=== PATIENT | female | born 1980 | race Two or more races ===

== ENCOUNTER 2016-08-20 10:34 | Emergency (ER) | payer BC ==
[~2016-08-20] VITALS: Ht 160 cm; Wt 76.2 kg
[2016-08-20 10:40] VITALS: BP 128/83
[2016-08-20] MEDS ORDERED: HYDROcodone-ACET 5/325MG TAB PO ONE (11:15)
[2016-08-20] MEDS ORDERED: diphenhdrAMINE HCL 50 MG/1 ML VL IM ONE (11:15)
[2016-08-20] MEDS ORDERED: TETANUS-DIPTH-ACEL PERTUSSIS 0.5ML SYRG IM ONE (12:30)
== END 2016-08-20 12:51 | disposition home or self-care (01) ==
LOC: EDBD 10:34 → ER 10:36
DX: M79.622 Pain in left upper arm (principal); T63.301A Toxic effect of unspecified spider venom, accidental (unintentional), initial encounter; Z23 Encounter for immunization; Y99.8 Other external cause status; Y93.89 Activity, other specified; Y92.89 Other specified places as the place of occurrence of the external cause
CPT/HCPCS: 90471; 90715; 96372; 99284; J1200

== ENCOUNTER 2024-04-19 20:00 | Emergency (ER) | payer BC ==
[~2024-04-19] VITALS: Ht 160 cm; Wt 81.2 kg
[2024-04-19 20:09] VITALS: PULSE 96; RESP 16; TEMP 98.5; O2SAT 98
--- NOTE | 2024-04-19 20:11 | ED.PDOC ---
HPI Allergic reaction HPI Comments THIS IS A 43-YEAR-OLD FEMALE PRESENTS TO THE ED CHIEF COMPLAINT RASH. PATIENT STATES SYMPTOMS STARTED EARLIER TODAY SHE NOTES WHEN OUT TO EAT AND AROUND 30 MINUTES LATER STARTED DEVELOPING A RASH IN THE FEELING OF THROAT SWELLING. PATIENT REPORTS TOOK BENADRYL IN HER VIOLETTA AND NOTICED SOME IMPROVEMENT IN THE RASH. CONTINUES WITH THE FEELING OF HER THROAT BEING SWOLLEN, ITCHINESS TO ABDOMEN AND BACK, AND RASH. DENIES CHEST PAIN, DIFFICULTY BREATHING, SHORTNESS OF BREATH, OR KNOWN ALLERGEN. PATIENT IS HYPERTENSIVE ON EXAM REPORTS HISTORY OF HIGH BLOOD PRESSURE TREATED WITH UNKNOWN BLOOD PRESSURE MEDICATION PATIENT STATES SHE TOOK IT IN THE MORNING TAKES IT ONCE DAILY. 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 Family History Family History: Unknown Social History Smoker: Non-Smoker Alcohol: Denies ETOH Use Drugs: Denies Drug Use Lives In: Home Constitutional: denies: chills, diaphoresis, fatigue, fever, malaise, sweats, weakness, others EENTM: reports: throat swelling; denies: blurred vision, double vision, ear bleeding, ear discharge, ear drainage, ear pain, ear ringing, eye pain, eye redness, hearing loss, mouth pain, mouth swelling, nasal discharge, nose bleed ing, nose congestion, nose pain, photophobia, tearing, throat pain, voice changes, others Respiratory: denies: cough, hemoptysis, orthopnea, SOB at rest, shortness of breath, SOB with excertion, stridor, wheezing, others Cardiovascular: denies: chest pain, dizzy spells, diaphoresis, Dyspnea on exertion, edema, irregular heart beat, left arm pain, lightheadedness, palpitations, PND, syncope, others Gastrointestinal: denies: abdomen distended, abdominal pain, blood streaked bowels, constipated, diarrhea, dysphagia, difficulty swallowing, hematemesis, melena, nausea, poor appetite, poor fluid intake, rectal bleeding, rectal pain, vomiting, others Genitourinary: denies: abnormal vagina bleeding, burning, dyspareunia, dysuria, flank pain, frequency, hematuria, incontinence, pain, , vagina disch arge, urgency, others Neurological: denies: dizziness, fainting, headache, left sided numbness, left sided weakness, numbness, paresthesia, pre-existing deficit, right sided numbness, right sided weakness, seizure, speech problems, tingling, tremors, weakness, others Musculoskeletal: denies: back pain, gout, joint pain, joint swelling, muscle pain, muscle stiffness, neck pain, others Integumetry: reports: rash (On abdomen and back); denies: bruises, change in color, change in hair/nails, dryness, laceration, lesions, lumps, wounds, others Allergic/Immunocompromised: denies: Difficulty Healing, Frequent Infections, Hives, Itching, others Hematologic/Lymphatic: denies: anemia, blood clots, easy bleeding, easy bruising, swollen glands, others Endocrine: denies: excessive hunger, excessive sweating, excessive thirst, excessive urination, flushing, intolerance to cold, intolerance to heat, unexplained weight gain, unexplained weight loss, others Psychiatric: denies: anxiety, bipolar disorder, depression, hopeless, panic disorder, schizophrenia, sleepless, suicidal, others Physical Exam General Appearance: No Apparent Distress, Normal HEENT: Normal ENT Inspection, Pharynx Normal, TMs Normal Neck: Full Range of Motion, Non-Tender Respiratory: Lungs Clear, No Accessory Muscle Use, No Respiratory Distress, Normal Breath Sounds Cardiovascular: No Edema, No JVD, No Murmur, No Gallop, Normal Peripheral Pulses, Regular Rate/Rhythm Breast Exam: Deferred Gastrointestinal: No Organomegaly, Non Tender, No Pulsatile Mass, Normal Bowel Sounds, Soft Genitalia: Deferred Pelvic: Deferred Rectal: Deferred Extremities: Normal capillary refill, Normal inspection, Normal range of motion, Non-tender, No pedal edema Musculoskeletal : Apperance: Normal Neurologic: Alert, registered nurse II-XII nml as Tested, No Motor Deficits, Normal Affect, Normal Mood, No Sensory Deficits Cerebellar Function: Normal Reflexes: Normal Skin: Dry, Normal Color, Rash (Urticarial rash noted across abdomen and back no noted excoriations, drainage.), Warm Lymphatic: No Adenopathy Was a procedure done? Was a procedure done?: No Differential diagnosis (all) Differential Diagnosis: Anaphylaxis, Angioedema, Bronchospasm, Urticaria X-Ray, Labs, Meds, VS Vital Signs Date Time Temp Pulse Resp B/P (MAP) Pulse Ox O2 Delivery O2 Flow Rate FiO2 04/19/24 20:09 98.5 96 16 172/103 (126) 98 04/19/24 20:09 98.5 96 16 172/103 (126) 98 98.5 04/19/24 20:09 Room Air Current Medications Medications (Trade) Dose Ordered Sig/Brodie Route Start Time Stop Time Status Last Admin Dexamethasone Sodium Phosphate (Decadron Injection) 10 mg ONCE ONCE IM 04/19/24 20:30 04/19/24 20:31 DC 04/19/24 20:33 Ketorolac Tromethamine (Toradol Injection) 60 mg ONCE ONCE IM 04/19/24 20:30 04/19/24 20:31 DC 04/19/24 20:33 Diphenhydramine HCl (Benadryl Injection) 25 mg ONCE ONCE IM 04/19/24 20:30 04/19/24 20:31 DC 04/19/24 20:34 Famotidine (Pepcid Tablet) 40 mg ONCE ONCE PO 04/19/24 20:30 04/19/24 20:31 DC 04/19/24 20:32 X-Ray, Labs, Meds, VS Comment PATIENT GIVEN BENADRYL 25 MG IM, DECADRON 10 MG IM, TORADOL 60 MG IM AND PEPCID 40 MG P.O. PATIENT REPORTS IMPROVEMENT IN THROAT SWELLING, ITCHINESS AND RASH. REQUESTING DISCHARGE AT THIS TIME. SCRIPT MEDROL DOSEPAK AND PEPCID 20 MG TWICE DAILY FOR 6 DAYS ADVISED TO CONTINUE WITH HER VIOLETTA KEEP BENADRYL ON HAND AT HOME INCREASE FLUIDS, FOLLOW UP WITH PCP IN 2-3 DAYS NECESSARY ER RETURN PRECAUTIONS GIVEN PATIENT AGREES WITH DISCHARGE PLAN OF CARE. Time of 1ST Reevaluation: 21:01 Reevaluation 1ST: Improved Patient Education/Counseling: Diagnosis, Treatment, Prognosis, Need For Follow Up Family Education/Counseling: No Family Present Departure 1 Departure Time of Disposition: 21:01 Impression: Primary Impression: Allergic reaction Qualified Codes: T78.40XA - Allergy, unspecified, initial encounter Additional Impression: Hypertension Qualified Codes: I10 - Essential (primary) hypertension Disposition: HOME / SELF CARE / HOMELESS Condition: Stable e-Prescriptions Famotidine (PEPCID TABLET) 20 Mg Tb 1 TAB PO BID for 6 Days, #12 TAB Prov: KAIT SPARKS 04/19/24 Methylprednisolone (Medrol Dosepak) 4 Mg Deepak 4 MG PO UD for 6 Days, #21 TAB UAD Prov: KAIT SPARKS 04/19/24 Discharged With: Significant Other Critical Care Note Critical Care Time?: No Stability Stability form required: No KAIT SPARKS Apr 19, 2024 20:10
[2024-04-19] MEDS: FAMOTIDINE 20 MG TAB PO ONE (20:32)
[2024-04-19] MEDS: KETOROLAC TROMETH 60MG/2ML VIAL IM ONE (20:33)
[2024-04-19] MEDS: DexAMETHasone SOD PHOS 10MG/1ML VIAL INJ IM ONE (20:33)
[2024-04-19] MEDS: diphenhdrAMINE HCL 50 MG/1 ML VL IM ONE (20:34)
[2024-04-19] MEDS ORDERED: FAMO20TA10 PO (21:04)
[2024-04-19] MEDS ORDERED: METH4PAK PO (21:04)
[2024-04-19 21:11] VITALS: BP 151/88
[2024-04-20] MEDS ORDERED: EPIN0.3I24 IJ (22:54)
[2024-04-20] MEDS ORDERED: DIPH25CA66 PO (23:10)
== END 2024-04-19 21:28 | disposition home or self-care (01) ==
LOC: ER 20:00
DX: T78.49XA Other allergy, initial encounter (principal); I10 Essential (primary) hypertension; Z90.710 Acquired absence of both cervix and uterus; X58.XXXA Exposure to other specified factors, initial encounter
CPT/HCPCS: 96372; 99284; J1100; J1200; J1885

== ENCOUNTER 2024-04-20 19:21 | Inpatient (IN) | payer BC ==
[~2024-04-20] VITALS: Ht 160 cm; Wt 83.0 kg
[~2024-04-20 19:21] MED LIST: FAMO20TA10 PO; METH4PAK PO
[2024-04-20] MEDS ORDERED: EPIN0.3I24 IJ (22:54)
--- NOTE | 2024-04-20 22:54 | ED.PDOC ---
HPI Allergic reaction HPI Comments 43-YEAR-OLD FEMALE PRESENTS TO ER WITH COMPLAINTS OF ALLERGIC REACTION X1 HOUR. PATIENT NO KNOWN ALLERGIES REPORTS THAT SHE STARTED EXPERIENCING ITCHY RED HIVES TO LEFT SIDE OF FACE, NECK, UPPER CHEST AND BILATERAL ARMS WITH ASSOCIATED ITCHY THROAT/DIFFICULTY SWALLOWING 1 HOUR PRIOR TO ARRIVAL TO ER THAT STARTED I MMEDIATELY AFTER SHE HAD EATEN A CHICKEN AND RICE BOWL. NOTES THAT SHE WAS SEEN IN ER HERE FOR SIMILAR REACTION YESTERDAY AND PRESCRIBED A MEDROL DOSEPAK AND PEPCID BUT STATES SHE ONLY TOOK BENADRYL AT ONSET OF SYMPTOMS TODAY WITHOUT ANY RELIEF. PATIENT PRESENTS TO ER AMBULATORY ON ARRIVAL WITH STEADY GAIT, IN NO DISTRESS, SPEAKING IN CLEAR AND COMPLETE SENTENCES, ALERT AND ORIENTED X4 WITH MILD URTICARIA NOTED TO LEFT SIDE OF FACE, NECK, UPPER CHEST WALL AND BILATERAL ARMS. DENIES SHORTNESS OF BREATH, CHEST PAIN, NAUSEA/VOMITING, DIET CHANGES, USE OF NEW SOAPS/DETERGENTS/LOTIONS, FEVER, ABDOMINAL PAIN OR ANY FURTHER S YMPTOMS/COMPLAINTS Chief Complaint: Rash Time Seen by MD: 19:27 Primary Care Provider: DR CURRY Reviewed Notes: Nurses Notes, Medications, Allergies Allergies: Coded Allergies: NO KNOWN ALLERGIES (Unverified , 02/01/16) Home Meds Active Scripts Famotidine (PEPCID TABLET) 20 Mg Tb, 1 TAB PO BID for 6 Days, #12 TAB Prov:KAIT SPARKS CARE NAVIGATOR 04/19/24 Methylprednisolone (Medrol Dosepak) 4 Mg Deepak, 4 MG PO UD for 6 Days, #21 TAB UAD Prov:KAIT SPARKS CARE NAVIGATOR 04/19/24 Discontinued Scripts Diphenhydramine Hcl (Benadryl Allergy) 25 Mg Cap, 2 CAP PO Q4HPRN, #30 CAP 0 Refills Prov:WENDY JANE 04/20/24 Epinephrine (Epinephrine) 0.3 Mg/0.3 Ml Inj, 0.3 MG IJ ONCE, #1 INJ 0 Refills Prov:WENDY JANE 04/20/24 Information Source: Patient Mode of Arrival: Ambulatory Past Medical History PAST MEDICAL HISTORY: HTN Surgical History: Appendectomy, Hysterectomy 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 Family History Family History: Unknown Social History Smoker: Non-Smoker Alcohol: Denies ETOH Use Drugs: Denies Drug Use Lives In: Home Constitutional: denies: chills, diaphoresis, fatigue, fever, malaise, sweats, weakness, others EENTM: denies: blurred vision, double vision, ear bleeding, ear discharge, ear drainage, ear pain, ear ringing, eye pain, eye redness, hearing loss, mouth pain, mouth swelling, nasal discharge, nose bleeding, nose congestion, nose pain, photophobia, tearing, throat pain, throat swelling, voice changes, others Respiratory: denies: cough, hemoptysis, orthopnea, SOB at rest, shortness of breath, SOB with excertion, stridor, wheezing, others Cardiovascular: denies: chest pain, dizzy spells, diaphoresis, Dyspnea on exertion, edema, irregular heart beat, left arm pain, lightheadedness, palpitations, PND, syncope, others Gastrointestinal: denies: abdomen distended, abdominal pain, blood streaked bowels, constipated, diarrhea, dysphagia, difficulty swallowing, hematemesis, melena, nausea, poor appetite, poor fluid intake, rectal bleeding, rectal pain, vomiting, others Genitourinary: denies: abnormal vagina bleeding, burning, dyspareunia, dysuria, flank pain, frequency, hematuria, incontinence, pain, , vagina discharge, urgency, others Neurological: denies: dizziness, fainting, headache, left sided numbness, left sided weakness, numbness, paresthesia, pre-existing deficit, right sided numbness, right sided weakness, seizure, speech problems, tingling, tremors, weakness, others Musculoskeletal: denies: back pain, gout, joint pain, joint swelling, muscle pain, muscle stiffness, neck pain, others Integumetry: reports: others ( STATED IN HPI) Allergic/Immunocompromised: reports: others ( STATED IN HPI) Hematologic/Lymphatic: denies: anemia, blood clots, easy bleeding, easy bruising, swollen glands, others Endocrine: denies: excessive hunger, excessive sweating, excessive thirst, excessive urination, flushing, intolerance to cold, intolerance to heat, unexplained weight gain, unexplained weight loss, others Psychiatric: denies: anxiety, bipolar disorder, depression, hopeless, panic disorder, schizophrenia, sleepless, suicidal, others Physical Exam General Appearance: No Apparent Distress, Obese HEENT: Normal ENT Inspection, PERRL/EOMI, Pharynx Normal, TMs Normal Neck: Full Range of Motion, Non-Tender, Normal Respiratory: Chest Non-Tender, Lungs Clear, No Accessory Muscle Use, No Respiratory Distress, Normal Breath Sounds Cardiovascular: No Murmur, No Gallop, Regular Rate/Rhythm Breast Exam: Deferred Gastrointestinal: No Organomegaly, Non Tender, No Pulsatile Mass, Normal Bowel Sounds, Soft Genitalia: Deferred Pelvic: Deferred Rectal: Deferred Extremities: Normal capillary refill, Normal range of motion Neurologic: Alert, cigar head pegger II-XII nml as Tested, No Motor Deficits, Normal Affect, Normal Mood, No Sensory Deficits Cerebellar Function: Normal Reflexes: Normal Skin: Dry, Warm, Other (MILD URTICARIA NOTED TO LEFT SIDE OF FACE, NECK, UPPER CHEST WALL AND BILATERAL ARMS. NO ANGIOEDEMA/FURTHER SKIN CHANGES NOTED) Peripheral Pulses: 2+ carotid (R), 2+ carotid (L), 2+ Radial (R), 2+ Radial (L), 2+ Brachial (R), 2+ Brachial (L) Lymphatic: No Adenopathy Was a procedure done? Was a procedure done?: No Sedation Sedation?: No Differential diagnosis (all) Differential Diagnosis: Anaphylaxis, Angioedema, Hypotension X-Ray, Labs, Meds, VS Vital Signs Date Time Temp Pulse Resp B/P (MAP) Pulse Ox O2 Delivery O2 Flow Rate FiO2 04/21/24 05:35 97 97 97 Room Air* 0 21 04/21/24 05:33 106 22 128/63 (84) 04/21/24 05:10 84 16 114/63 (80) 04/21/24 04:01 98.9 87 16 97/48 (64) 98 98.9 04/21/24 01:59 99.0 74 16 114/60 (78) 99 99.0 04/20/24 23:13 70 13 97 Room Air 04/20/24 23:13 98.6 70 13 133/79 (97) 97 98.6 04/20/24 19:36 98.3 89 18 141/97 (112) 95 Lab Test 04/21/24 03:30 04/21/24 02:14 Range/Units Urine Color Colorless Yellow Urine Clarity Clear Clear Urine pH 6.0 5.0-9.0 Urine Specific [place] 1.004 1.001-1.035 Urine Protein Negative Negative Urine Ketones Negative Negative Urine Blood Negative Negative /uL Urine Nitrite Negative Negative Urine Bilirubin Negative Negative Urine Urobilinogen Normal Negative mg/dL Urine Leukocyte Esterase Negative Negative /uL Urine RBC None seen 0 - 4 /hpf Urine Microscopic WBC < 1 0-5 /HPF Urine Squamous Epithelial Cells Few <5 /hpf Urine Bacteria Few H None Seen /hpf Urine Glucose 2+ H Normal mg/dL White Blood Count 16.0 H 4.4-10.8 10^3/uL Red Blood Count 4.37 4.0-5.20 10^6/uL Hemoglobin 13.4 12.2-16.2 g/dL Hematocrit 40.1 36.0-46.0 % Mean Corpuscular Volume 91.7 80.0-100.0 fL Mean Corpuscular Hemoglobin 30.6 28.0-32.0 pg Mean Corpuscular Hemoglobin Concent 33.3 32.0-36.0 g/dL Red Cell Distribution Width 12.8 11.8-14.3 % Platelet Count 299 140-450 10^3/uL Mean Platelet Volume 9.3 6.9-10.8 fL Neutrophils (%) (Auto) 90.3 H 37.0-80.0 % Lymphocytes (%) (Auto) 7.9 L 10.0-50.0 % Monocytes (%) (Auto) 1.5 0.0-12.0 % Eosinophils (%) (Auto) 0.1 0.0-7.0 % Basophils (%) (Auto) 0.2 0.0-2.0 % Neutrophils # (Auto) 14.5 H 1.6-8.6 10 ^3/uL Lymphocytes # (Auto) 1.3 0.4-5.4 10 ^3/uL Monocytes # (Auto) 0.2 0-1.3 10 ^3/uL Eosinophils # (Auto) 0 0-0.8 10 ^3/uL Basophils # (Auto) 0 0-0.2 10 ^3/uL Nucleated Red Blood Cells 0.0 % Sodium Level 141 136-145 mmol/L Potassium Level 3.4 L 3.5-5.1 mmol/L Chloride Level 107 98-107 mmol/L Carbon Dioxide Level 23 20-31 mmol/L Anion Gap 11 5-15 Blood Urea Nitrogen 10 9-23 mg/dL Creatinine 0.72 0.550-1.02 mg/dL Glomerular Filtration Rate Calc 106 >90 mL/min BUN/Creatinine Ratio 13.9 10.0-20.0 Serum Glucose 171 H 74-106 mg/dL Calcium Level 9.4 8.7-10.4 mg/dL Total Bilirubin 0.4 0.2-1.0 mg/dL Aspartate Amino Transferase (AST) 25 13-40 U/L Alanine Aminotransferase (ALT) 54 H 7-40 U/L Alkaline Phosphatase 105 46-116 U/L Total Protein 7.1 5.7-8.2 g/dL Albumin 4.4 3.2-4.8 g/dL Current Medications Medications (Trade) Dose Ordered Sig/Brodie Route Start Time Stop Time Status Last Admin Diphenhydramine HCl (Benadryl Injection) 25 mg ONCE ONCE IM 04/20/24 23:00 04/20/24 23:01 DC 04/20/24 23:00 Methylprednisolone Sodium Succinate (Solu Medrol) 125 mg ONCE ONCE IM 04/20/24 23:00 04/20/24 23:01 NM 04/20/24 22:59 Epinephrine HCl 0.1 mg ONCE ONCE SC 04/21/24 00:15 04/21/24 00:21 NM 04/21/24 00:23 Famotidine (Pepcid Tablet) 40 mg ONCE ONCE PO 04/21/24 01:00 04/21/24 01:01 DC 04/21/24 01:03 Sodium Chloride 1,000 ml @ 1,000 mls/hr Q1H ONCE IV 04/21/24 01:00 04/21/24 01:59 DC 04/21/24 01:27 Sodium Chloride 1,000 ml @ 1,000 mls/hr Q1H ONCE IV 04/21/24 02:15 04/21/24 03:14 NM 04/21/24 02:15 Methylprednisolone Sodium Succinate (Solu Medrol) 125 mg ONCE ONCE IV 04/21/24 02:15 04/21/24 02:16 NM 04/21/24 02:19 Epinephrine HCl 0.3 mg ONCE ONCE IM 04/21/24 02:15 04/21/24 02:16 DC 04/21/24 02:15 Diphenhydramine HCl (Benadryl Injection) 50 mg ONCE ONCE IV 04/21/24 02:15 04/21/24 02:16 DC 04/21/24 02:19 Epinephrine HCl 0.3 mg ONCE ONCE IM 04/21/24 05:00 04/21/24 05:08 DC 04/21/24 05:27 CBC reviewed-WBC 16.0 CMP reviewed-potassium 3.4 URINALYSIS REVIEWED-URINE GLUCOSE 2+, REMAINDER URINALYSIS REVIEWED WITHOUT ANY SIGNIFICANT ABNORMALITIES SOLU-MEDROL 125 MG IM ORDERED BENADRYL 25 MG IM ORDERED EPINEPHRINE 0.1 MG SC ORDERED HEP-LOCK IV ORDERED NS 1 L IV ORDERED PEPCID 40 MG P.O. ORDERED 02:15 PATIENTS SYMPTOMS HAVE REMAINED UNCHANGED EPINEPHRINE 0.3 MG IM ORDERED SOLU-MEDROL 125 MG IV ORDERED BENADRYL 50 MG IV ORDERED NS 1 LITER IV ORDERED PATIENT RESTING COMFORTABLY AT BEDSIDE 05:08- PATIENT'S SYMPTOMS ARE NOT PROMPTLY RESPONDING TO EPINEPHRINE AND PATIENT KEEPS NEEDING REPEAT DOSING EPINEPHRINE 0.3 MG IM ORDERED [facility] AUTHORIZATION # TO ADMIT [id number] PATIENT PUT UP FOR ADMISSION TO HOSPITALIST FOR ANAPHYLAXIS Time of 1ST Reevaluation: 22:24 Reevaluation 1ST: N/A Time of 2ND Reevaluation: 00:08 Reevaluation 2ND: Unchanged Time of 3RD Reevaluation: 02:08 Reevaluation 3RD: Unchanged (05:08- PATIENTS SYMPTOMS HAVE REMAINED UNCHANGED) Patient Education/Counseling: Diagnosis, Treatment, Prognosis, Need For Follow Up Family Education/Counseling: No Family Present Departure 1 Departure Time of Disposition: 05:08 Impression: Primary Impression: Anaphylaxis Qualified Codes: T78.2XXA - Anaphylactic shock, unspecified, initial encounter Disposition: ADMITTED INPATIENT Condition: Serious Discharged With: Friend Critical Care Note Critical Care Time?: No Stability Stability form required: No Heart Score Heart Score: Heart Score Response (Comments) Value History N/A 0 EKG N/A 0 Age N/A 0 Risk Factors N/A 0 Troponin N/A 0 Total 0 WENDY JANE Apr 20, 2024 22:54
[2024-04-20] MEDS: methylPREDNISolone SOD SUCC 125 MG/2 ML VL IM ONE (22:59)
[2024-04-20] MEDS: diphenhdrAMINE HCL 50 MG/1 ML VL IM ONE (23:00)
[2024-04-20] MEDS ORDERED: DIPH25CA66 PO (23:10)
[2024-04-21] VITALS (11 sets, daily range): BP systolic 107–149; BP diastolic 58–85; PULSE 77–97; RESP 15–97; TEMP 97.8–98.9; O2SAT 96–98
[2024-04-21] MEDS: EPINEPHrine HCL 1 MG/1 ML AMP SC ONE (00:23)
[2024-04-21] MEDS: FAMOTIDINE 20 MG TAB PO ONE (01:03)
[2024-04-21] MEDS: SODIUM CHLORIDE 0.9% 1,000 ML IV ONE ×2 (01:27→02:15)
[2024-04-21] MEDS: EPINEPHrine HCL 1 MG/1 ML AMP IM ONE ×2 (02:15→05:27)
[2024-04-21] MEDS: diphenhdrAMINE HCL 50 MG/1 ML VL IV ONE (02:19)
[2024-04-21] MEDS: methylPREDNISolone SOD SUCC 125 MG/2 ML VL IV ONE (02:19)
[2024-04-21 02:48] LABS: Basophils # (auto) 0 10 ^3/uL (0-0.2); Basophils % (auto) 0.2 % (0.0-2.0); Eosinophils # (auto) 0 10 ^3/uL (0-0.8); Eosinophils % (auto) 0.1 % (0.0-7.0); Hematocrit 40.1 % (36.0-46.0); Hemoglobin 13.4 g/dL (12.2-16.2); Lymphocytes # (auto) 1.3 10 ^3/uL (0.4-5.4); Lymphocytes % (auto) 7.9 % (10.0-50.0); Mean Corpuscular Hemoglobin 30.6 pg (28.0-32.0); Mean Corpuscular Hgb Conc. 33.3 g/dL (32.0-36.0); Mean Corpuscular Volume 91.7 fL (80.0-100.0); Monocytes # (auto) 0.2 10 ^3/uL (0-1.3); Monocytes % (auto) 1.5 % (0.0-12.0); Neutrophils # (auto) 14.5 10 ^3/uL (1.6-8.6); Neutrophils % (auto) 90.3 % (37.0-80.0); Platelet Count (auto) 299 10^3/uL (140-450); Red Blood Cells 4.37 10^6/uL (4.0-5.20); Red Cell Distribution Width 12.8 % (11.8-14.3)
[2024-04-21 02:54] LABS: Albumin 4.4 g/dL (3.2-4.8); Alkaline Phosphatase 105 U/L (46-116); Anion Gap 11 (5-15); Aspartate Aminotransferase 25 U/L (13-40); BUN/Creatinine Ratio 13.9 (10.0-20.0); Blood Urea Nitrogen 10 mg/dL (9-23); Calcium 9.4 mg/dL (8.7-10.4); Carbon Dioxide 23 mmol/L (20-31); Chloride 107 mmol/L (98-107); Sodium 141 mmol/L (136-145)
[2024-04-21 02:55] LABS: Bilirubin, Total 0.4 mg/dL (0.2-1.0); Total Protein 7.1 g/dL (5.7-8.2)
[2024-04-21 03:02] LABS: Alanine Aminotransferase 54 U/L (7-40); Glucose 171 mg/dL (74-106); Potassium 3.4 mmol/L (3.5-5.1)
[2024-04-21 04:55] LABS: Urine Bacteria FEW /hpf (None Seen); Urine Blood Negative /uL (Negative); Urine Clarity Clear (Clear); Urine Color Colorless (Yellow); Urine Protein, UAD Negative (Negative); Urine Specific Gravity 1.004 (1.001-1.035); Urine Squamous Epithelial Cell FEW /hpf (<5); Urine Urobilinogen Normal (Negative); Urine WBC < 1 /HPF (0-5)
--- NOTE | 2024-04-21 07:08 | DVHHP2 ---
History of Present Illness Reason for Visit: Itchy throat and rash History of Present Illness Maria Guadalupe Pierce is a 43-year-old female with past medical history of hypertension, hyperlipidemia, GERD, migraines, appendectomy, and hysterectomy presents to the ED for itchy throat and rash after eating a homemade chicken franchesca wl x2 days. Patient reports this is the 2nd episode this week and she currently sees an wrecker driver, received a skin and blood test to determine what her triggering factors are which she states are environmental. Patient reports that she was getting immunotherapy but stopped last year in August and has not resumed. Patient denies any recent sick contacts, recent illnesses, chest pain, shortness of breath, nausea, vomiting, diarrhea, fever, chills, lightheadedness, and dizziness. Cardiovascular: HTN, hyperipidemia WAREHOUSE HAND: Migraine GI: GERD Past Surgical History: Appendectomy, Hysterectomy Family History: Cancer, DM, Hyperlipidemia, Other (Mom with diabetes and hyperlipidemia, dad with diabetes, hyperlipidemia, and prostate cancer) Smoke: No ALCOHOL: none Drugs: None Lives: with Family Domestic Violence: Neg Review of Systems Constitutional: No: Fever, Chills, Sweats, Weakness, Malaise, Other Eyes: No: Pain, Vision change, Conjunctivae inflammation, Eyelid inflammation, Other, Redness ENT: Other (Itchy throat); No: Ear pain, Ear discharge, Nose pain, Nose discharge, Nose congestion, Mouth pain, Mouth swelling, Throat pain, Throat swelling Respiratory: No: Cough, Dry, Shortness of breath, SOB with excertion, Wheezing, Hemoptysis, Pleuritic Pain, Sputum, Wheezing, Other Cardiovascular: No: Chest Pain, Palpitations, Orthopnea, Paroxysmal Noc. Dyspnea, Edema, Lt Headedness, Other Gastrointestinal: No: Nausea, Vomiting, Abdominal Pain, Diarrhea, Constipation, Melena, Hematochezia, Other Genitourinary: No Dysuria, No Frequency, No Incontinence, No Hematuria, No Retention, No Other Musculoskeletal: No: other, neck pain, shoulder pain, arm pain, back pain, hand pain, leg pain, foot pain Skin: Rash; No: Lesions, Jaundice, Bruising, Other Neurological: No: Weakness, Numbness, Incoordination, Change in speech, Confusion, Seizures, Other Allergies: Coded Allergies: NO KNOWN ALLERGIES (Unverified , 11/9/16) Exam Vital Signs Vital Signs Date Time Temp Pulse Resp B/P (MAP) Pulse Ox O2 Delivery O2 Flow Rate FiO2 04/21/24 06:28 93 16 107/58 (74) 96 04/21/24 05:35 Room Air* 0 21 04/21/24 04:01 98.9 98.9 General Appearance: Alert, Oriented X3, Cooperative, No acute distress HEENT: Atraumatic, PERRLA, EOMI, Mucous membr. moist/pink Respiratory: Clear to auscultation, Normal air movement Cardiovascular: Regular rate, Normal S1, Normal S2, No murmurs Abdominal: Normal bowel sounds, Soft, No tenderness, No hepatospenomegaly, No masses Extremities: No clubbing, No cyanosis, No edema, Normal pulses, No tenderness/swelling Skin: No rashes, No breakdown, No significant lesion Neuro: Normal gait, Normal speech, Strength at 5/5 X4 ext, Normal tone, Sensation intact Psych/Mental Status: Mental status NL, Mood NL Labs/Xrays Labs Test 04/21/24 03:30 04/21/24 02:14 Range/Units Urine Color Colorless Yellow Urine Clarity Clear Clear Urine pH 6.0 5.0-9.0 Urine Specific [place] 1.004 1.001-1.035 Urine Protein Negative Negative Urine Ketones Negative Negative Urine Blood Negative Negative /uL Urine Nitrite Negative Negative Urine Bilirubin Negative Negative Urine Urobilinogen Normal Negative mg/dL Urine Leukocyte Esterase Negative Negative /uL Urine RBC None seen 0 - 4 /hpf Urine Microscopic WBC < 1 0-5 /HPF Urine Squamous Epithelial Cells Few <5 /hpf Urine Bacteria Few H None Seen /hpf Urine Glucose 2+ H Normal mg/dL White Blood Count 16.0 H 4.4-10.8 10^3/uL Red Blood Count 4.37 4.0-5.20 10^6/uL Hemoglobin 13.4 12.2-16.2 g/dL Hematocrit 40.1 36.0-46.0 % Mean Corpuscular Volume 91.7 80.0-100.0 fL Mean Corpuscular Hemoglobin 30.6 28.0-32.0 pg Mean Corpuscular Hemoglobin Concent 33.3 32.0-36.0 g/dL Red Cell Distribution Width 12.8 11.8-14.3 % Platelet Count 299 140-450 10^3/uL Mean Platelet Volume 9.3 6.9-10.8 fL Neutrophils (%) (Auto) 90.3 H 37.0-80.0 % Lymphocytes (%) (Auto) 7.9 L 10.0-50.0 % Monocytes (%) (Auto) 1.5 0.0-12.0 % Eosinophils (%) (Auto) 0.1 0.0-7.0 % Basophils (%) (Auto) 0.2 0.0-2.0 % Neutrophils # (Auto) 14.5 H 1.6-8.6 10 ^3/uL Lymphocytes # (Auto) 1.3 0.4-5.4 10 ^3/uL Monocytes # (Auto) 0.2 0-1.3 10 ^3/uL Eosinophils # (Auto) 0 0-0.8 10 ^3/uL Basophils # (Auto) 0 0-0.2 10 ^3/uL Nucleated Red Blood Cells 0.0 % Sodium Level 141 136-145 mmol/L Potassium Level 3.4 L 3.5-5.1 mmol/L Chloride Level 107 98-107 mmol/L Carbon Dioxide Level 23 20-31 mmol/L Anion Gap 11 5-15 Blood Urea Nitrogen 10 9-23 mg/dL Creatinine 0.72 0.550-1.02 mg/dL Glomerular Filtration Rate Calc 106 >90 mL/min BUN/Creatinine Ratio 13.9 10.0-20.0 Serum Glucose 171 H 74-106 mg/dL Calcium Level 9.4 8.7-10.4 mg/dL Total Bilirubin 0.4 0.2-1.0 mg/dL Aspartate Amino Transferase (AST) 25 13-40 U/L Alanine Aminotransferase (ALT) 54 H 7-40 U/L Alkaline Phosphatase 105 46-116 U/L Total Protein 7.1 5.7-8.2 g/dL Albumin 4.4 3.2-4.8 g/dL CHEST RADIOGRAPH Indication: anaphylaxis Technique: Single frontal view of the chest was obtained COMPARISON: None FINDINGS: Lines and Tubes: None Lungs: Clear Pleura: No effusion. No pneumothorax. Cardiomediastinal contours: Unremarkable Bones: Unremarkable IMPRESSION: No acute disease. Assessment/Plan Assessment/Plan Assessment/Plan: Anaphylaxis Leukocytosis Labs UA epi given in ED Antihistamine given in ED IV steroids NS 2 L given ED PPI IV antibiotics-ceftriaxone + azithromycin Chest x-ray EEG Flu test COVID test Respiratory treatments A.m. labs Antiemetics Diabetes type 2 uncontrolled Hemoglobin A1c ISS and Accu-Cheks Hypokalemia Replete lytes Chronic hypertension Continue home medications Chronic hyperlipidemia Continue home medications History of GERD PPI History of migraines Follow up outpatient with PCP FEN/PPX Diet Hep-Lock DVT prophylaxis not indicated patient ambulating and patient thrombocytopenic PUD prophylaxis-famotidine given with steroids Home medications reconciled Discussed plan of care with patient and nurse Admit to med surge Plan discussed with: Patient My Orders Orders - EB ELIZABETH Lizette [employer] UTILITY MACHINE OPERATOR Procedure Category Date Status Time Chest Xray 1 View XY 04/21/24 Logged 06:21 Electrocardigram EKG 04/21/24 Logged 06:21 Methylprednisolone PHA 04/21/24 Transmitted Sod Succ (Solu Medrol 14:00 Albuterol Medneb PHA 04/21/24 Transmitted (Ventolin Medneb) 12:00 Albuterol Medneb PHA 04/21/24 Transmitted (Ventolin Medneb) 07:15 Ipratropium Medneb PHA 04/21/24 Transmitted (Atrovent Medneb) 12:00 Ipratropium Medneb PHA 04/21/24 Transmitted (Atrovent Medneb) 07:15 Famotidine Injection PHA 04/21/24 Transmitted (Pepcid Injection) 10:00 Ceftriaxone Ivpb PHA 04/21/24 Transmitted Rocephin 09:00 Ceftriaxone Ivpb PHA 04/21/24 Transmitted Rocephin 07:15 Azithromycin 500mg/ PHA 04/21/24 Transmitted 250ml (Zithromax 50 10:00 Azithromycin 500mg/ PHA 04/21/24 Transmitted 250ml (Zithromax 50 07:15 Rapid Influenza A&B LAB 04/21/24 Transmitted 07:02 Covid19 Antigen Tory LAB 04/21/24 Transmitted Hemoglobin A1c LAB 04/21/24 Transmitted 07:02 Glucose Blood PHA 04/21/24 Transmitted (Accu-Chek Comfort 11:30 Mild Sliding Scale PHA 04/21/24 Transmitted 11:30 Dextrose 50% Syringe PHA 04/21/24 Verified 07:15 Diphenhdramine PHA 04/21/24 Verified Injection (Benadryl 07:15 Admit ADMIT 04/21/24 Verified 07:02 Allergies ISABELLA 04/21/24 Verified 07:02 Code Status CODE 04/21/24 Verified 07:02 Ondansetron Hcl PHA 04/21/24 Verified (Zofran) 07:15 Complete Blood Count LAB 04/22/24 Verified 04:00 Comprehensive LAB 04/22/24 Verified Metabolic Panel 04:00 Cardiac DIET 04/21/24 Verified Diet-2gna,Lofat,Lochol Breakfast Acetaminophen Tablet PHA 04/21/24 Verified (Tylenol Tablet) 07:15 Date of Service: Apr 21, 2024 Billing Provider: EB ELIZABETH Common Visit Codes: [id number] INP/OBS CARE (HIGH) EB ELIZABETH Apr 21, 2024 07:08
[2024-04-21] MEDS ORDERED: ALBUTEROL SULF 2.5 MG/0.5ML(0.5%) NEB SOLN NEB PRN (07:15)
[2024-04-21] MEDS ORDERED: IPRATROPIUM BROM 0.5 MG/2.5ML INH SOL NEB PRN (07:15)
[2024-04-21] MEDS ORDERED: ONDANSETRON HCL 4 MG/2 ML VIAL IV PRN (07:15)
[2024-04-21] MEDS ORDERED: DEXTROSE (50%) 50ML SYRG IV PRN (07:15)
[2024-04-21] MEDS: cefTRIAXone 1GM/50ML D5W 50 ML IV ONE (07:50)
[2024-04-21] MEDS: POTASSIUM CHL 20 Meq TABLET PO ONE (07:50)
--- NOTE | 2024-04-21 07:54 | DVH ---
CHEST RADIOGRAPH Indication: anaphylaxis Technique: Single frontal view of the chest was obtained COMPARISON: None FINDINGS: Lines and Tubes: None Lungs: Clear Pleura: No effusion. No pneumothorax. Cardiomediastinal contours: Unremarkable Bones: Unremarkable IMPRESSION: No acute disease.
[2024-04-21] MEDS: diphenhdrAMINE HCL 50 MG/1 ML VL IV PRN ×2 (08:15→16:15)
[2024-04-21] MEDS: AZITHROMYCIN 500MG/ 250ML 250 ML IV ONE (08:18)
--- NOTE | 2024-04-21 08:21 | ECG ---
[facility] Test Date: 2024-04-21 Test Time: 08:11:07 Pat Name: VINAY REYNOLDS Department: ER Room: 0296 Gender: F Pit Tanner: JOSE : 1980 Requested By: EB ELIZABETH Order Number: [id number] Reading MD: Kendall Salas Measurements Intervals [place] Rate: 87 P: 67 CO: 137 QRS: 52 QRSD: 82 T: 53 QT: 399 QTc: 480 Interpretive Statements Sinus rhythm Borderline prolonged QT interval Baseline wander in lead(s) V5,V6 Electronically Signed On 04-22-2024 8:54:46 PST by Kendall Salas Please click the below link to view image of tracing.
[2024-04-21] MEDS: cefTRIAXone 1GM/50ML D5W 50 ML IV SCH (09:00)
[2024-04-21 09:41] LABS: COVID19 ANTIGEN SOFIA FIA NEGATIVE (NEGATIVE); Rapid Influenza A Negative (Negative); Rapid Influenza B Negative (Negative)
[2024-04-21] MEDS: FAMOTIDINE (10MG/ML) 2ML VL IV SCH ×2 (10:00→21:49)
[2024-04-21] MEDS: ACCU-CHEK COMFORT CURVE STRIP VI SCH (11:33)
[2024-04-21] MEDS: InsuLIN REG 1unit/0.01ml Soln (100units/ml) SC SCH (11:33)
[2024-04-21] MEDS: ALBUTEROL SULF 2.5 MG/0.5ML(0.5%) NEB SOLN NEB SCH (12:06)
[2024-04-21] MEDS: IPRATROPIUM BROM 0.5 MG/2.5ML INH SOL NEB SCH (12:07)
[2024-04-21] MEDS: methylPREDNISolone SOD SUCC 40 MG/ML VL IV SCH (13:51)
--- NOTE | 2024-04-21 15:08 | DVHPN2 ---
Subjective Patient continues to report having itchiness, hives, and sore/itchy throat. Reviewed: Care Plan, H&P, Labs, Medications Changes from previous H/P or p: No Changes Eyes: No Pain, No Vision change, No Conjunctivae inflammation, No Eyelid inflammation, No Other, No Redness ENT: No Ear pain, No Ear discharge, No Nose pain, No Nose discharge, No Nose congestion, No Mouth pain, No Mouth swelling, No Throat pain, No Throat swelling; Other (Itchy throat) Cardiovascular: No Chest Pain, No Palpitations, No Orthopnea, No Paroxysmal Noc. Dyspnea, No Edema, No Lt Headedness, No Other Respiratory: No Cough, No Dry, No Shortness of breath, No SOB with excertion, No Wheezing, No Hemoptysis, No Pleuritic Pain, No Sputum, No Other Gastrointestinal: No Nausea, No Vomiting, No Abdominal Pain, No Diarrhea, No Constipation, No Melena, No Hematochezia, No Other Genitourinary: No Dysuria, No Frequency, No Incontinence, No Hematuria, No Retention, No Other Musculoskeletal: No other, No neck pain, No shoulder pain, No arm pain, No back pain, No hand pain, No leg pain, No foot pain Skin: Rash; No Lesions, No Jaundice, No Bruising, No Other Objective Vitals Vital Signs Date Time Temp Pulse Resp B/P (MAP) Pulse Ox O2 Delivery O2 Flow Rate FiO2 04/21/24 12:08 16 96 Room Air* 0 21 04/21/24 11:42 98.4 82 122/68 (86) 98.4 General Appearance: Alert, Oriented X3, Cooperative, No acute distress HEENT: Atraumatic, PERRLA Cardiovascular: Normal S1, Normal S2 Genitourinary: No Apparent Abnormalities Musculoskeletal: Normal sensory function, Normal motor function Neuro: Normal gait, Normal speech Skin: Intact, Other (Systemic hives) Psych/Mental Status: Mental status NL, Mood NL Medications Current Medications Medications Dose Ordered Sig/Brodie Route Start Time Stop Time Status Last Admin Dose Admin Methylprednisolone Sodium Succinate 40 mg Q8HR IV 04/21/24 14:00 04/21/24 13:51 40 MG Albuterol 2.5 mg Q6HWA NEB 04/21/24 12:00 04/21/24 12:06 2.5 MG Albuterol 2.5 mg Q2HPRN PRN NEB 04/21/24 07:15 Ipratropium [place] 0.5 mg Q6HWA NEB 04/21/24 12:00 04/21/24 12:07 0.5 MG Ipratropium [place] 0.5 mg Q2HPRN PRN NEB 04/21/24 07:15 Famotidine 20 mg DAILY IV 04/21/24 10:00 04/21/24 10:00 20 MG Ceftriaxone Sodium 50 ml @ 100 mls/hr DAILY@09 IV 04/21/24 09:00 Azithromycin 250 ml @ 125 mls/hr DAILY IV 04/22/24 10:00 Diagnostic Test (Pha) 1 strip ACHS 04/21/24 11:30 04/21/24 11:33 1 STRIP Insulin Human Regular ACHS SC 04/21/24 11:30 04/21/24 11:33 3 UNITS Dextrose 50 ml UD PRN IV 04/21/24 07:15 Diphenhydramine HCl 25 mg Q4HP PRN IV 04/21/24 07:15 04/21/24 12:53 25 MG Ondansetron HCl 4 mg Q4HP PRN IV 04/21/24 07:15 Acetaminophen 650 mg Q6HP PRN PO 04/21/24 07:15 Laboratory Results Laboratory Tests 04/21/24 02:14 Chemistry Test 04/21/24 02:14 Albumin 4.4 g/dL (3.2-4.8) Calcium Level 9.4 mg/dL (8.7-10.4) Total Protein 7.1 g/dL (5.7-8.2) LFT Test 04/21/24 02:14 Alanine Aminotransferase (ALT) 54 U/L (7-40) H Alkaline Phosphatase 105 U/L (46-116) Aspartate Amino Transferase (AST) 25 U/L (13-40) Total Bilirubin 0.4 mg/dL (0.2-1.0) HgA1c, TSH Test 04/21/24 02:14 Hemoglobin A1c 5.4 % A1C (<5.7) Urinalysis Test 04/21/24 03:30 Urine Color Colorless (Yellow) Urine Clarity Clear (Clear) Urine pH 6.0 (5.0-9.0) Urine Specific [place] 1.004 (1.001-1.035) Urine Protein Negative (Negative) Urine Ketones Negative (Negative) Urine Blood Negative /uL (Negative) Urine Nitrite Negative (Negative) Urine Bilirubin Negative (Negative) Urine Urobilinogen Normal mg/dL (Negative) Urine Leukocyte Esterase Negative /uL (Negative) Urine RBC None seen /hpf (0 - 4) Urine Microscopic WBC < 1 /HPF (0-5) Urine Squamous Epithelial Cells Few /hpf (<5) Urine Bacteria Few /hpf (None Seen) H Urine Glucose 2+ mg/dL (Normal) H Labs and/or images reviewed: Labs reviewed by me, Image(s) reviewed by me Assessment/Plan Assessment/Plan Impression: -anaphylactic reaction -obesity -primary hypertension -dyslipidemia -sirs response without organ dysfunction Plan: -re-evaluation of the patient reveals systemic hives with the patient continued to have some throat discomfort. -increase Solu-Medrol to 80 mg IV every 8 hours -H1/H2 soni with Pepcid and Benadryl -continue antihypertensives -frequent airway monitoring. Total time spent with patient discussing and formulating plan of care: 35 minutes. This medical document was created using an electronic medical record system with [employer] dictation system. Although this document has been carefully reviewed, there may still be some phonetic and typographical errors. These areas are purely typographical due to imperfections of the software programs, and do not reflect any compromise in the patient's medical care. Plan discussed with: Patient, Other (RN) My Orders Orders - FIDENCIO GATES NP Procedure Category Date Status Time Methylprednisolone PHA 04/21/24 Logged Sod Succ (Solu Medrol 22:00 Famotidine Injection PHA 04/21/24 Logged (Pepcid Injection) 22:00 Diphenhdramine PHA 04/21/24 Logged Injection (Benadryl 15:00 Date of Service: Apr 21, 2024 Billing Provider: FIDENCIO GATES NP Common Visit Codes: [id number] INP/OBS CARE(HIGH) FIDENCIO GATES NP Apr 21, 2024 15:08
[2024-04-21] MEDS: methylPREDNISolone SOD SUCC 125 MG/2 ML VL IV SCH (21:50)
[2024-04-21] MEDS: ACETAMINOPHEN 325 MG TAB PO PRN (22:39)
[2024-04-22] VITALS (13 sets, daily range): BP systolic 124–150; BP diastolic 67–89; PULSE 71–94; RESP 16–20; TEMP 97.8–98.6; O2SAT 95–100
[2024-04-22 07:53] LABS: Basophils # (auto) 0 10 ^3/uL (0-0.2); Eosinophils # (auto) 0 10 ^3/uL (0-0.8); Hematocrit 40.3 % (36.0-46.0); Lymphocytes # (auto) 1.2 10 ^3/uL (0.4-5.4); Lymphocytes % (auto) 5.3 % (10.0-50.0); Mean Corpuscular Hemoglobin 31.5 pg (28.0-32.0); Mean Corpuscular Hgb Conc. 34.8 g/dL (32.0-36.0); Mean Corpuscular Volume 90.4 fL (80.0-100.0); Monocytes # (auto) 0.5 10 ^3/uL (0-1.3); Monocytes % (auto) 2.3 % (0.0-12.0); Neutrophils # (auto) 20.4 10 ^3/uL (1.6-8.6); Neutrophils % (auto) 92.4 % (37.0-80.0); Nucleated Red Blood Cells % 0.1 %; Platelet Count (auto) 313 10^3/uL (140-450); Red Blood Cells 4.46 10^6/uL (4.0-5.20); Red Cell Distribution Width 13.2 % (11.8-14.3); White Blood Cell 22.1 10^3/uL (4.4-10.8)
[2024-04-22 07:58] LABS: Albumin 4.6 g/dL (3.2-4.8); Alkaline Phosphatase 97 U/L (46-116); Anion Gap 9 (5-15); Aspartate Aminotransferase 15 U/L (13-40); BUN/Creatinine Ratio 13.5 (10.0-20.0); Blood Urea Nitrogen 10 mg/dL (9-23); Calcium 9.9 mg/dL (8.7-10.4); Carbon Dioxide 26 mmol/L (20-31); Chloride 105 mmol/L (98-107); Potassium 4.1 mmol/L (3.5-5.1); Sodium 140 mmol/L (136-145)
[2024-04-22 07:59] LABS: Bilirubin, Total 0.5 mg/dL (0.2-1.0); Total Protein 6.9 g/dL (5.7-8.2)
[2024-04-22 08:02] LABS: Alanine Aminotransferase 44 U/L (7-40); Glucose 143 mg/dL (74-106)
[2024-04-22] MEDS ORDERED: AZITHROMYCIN 500MG/ 250ML 250 ML IV SCH (10:00)
--- NOTE | 2024-04-22 15:40 | DVHPN2 ---
Subjective Patient continues to report having itchiness, hives, and sore/itchy throat. Reviewed: Care Plan, H&P, Labs, Medications Changes from previous H/P or p: No Changes Eyes: No Pain, No Vision change, No Conjunctivae inflammation, No Eyelid inflammation, No Other, No Redness ENT: No Ear pain, No Ear discharge, No Nose pain, No Nose discharge, No Nose congestion, No Mouth pain, No Mouth swelling, No Throat pain, No Throat swelling; Other (Itchy throat) Cardiovascular: No Chest Pain, No Palpitations, No Orthopnea, No Paroxysmal Noc. Dyspnea, No Edema, No Lt Headedness, No Other Respiratory: No Cough, No Dry, No Shortness of breath, No SOB with excertion, No Wheezing, No Hemoptysis, No Pleuritic Pain, No Sputum, No Other Gastrointestinal: No Nausea, No Vomiting, No Abdominal Pain, No Diarrhea, No Constipation, No Melena, No Hematochezia, No Other Genitourinary: No Dysuria, No Frequency, No Incontinence, No Hematuria, No Retention, No Other Musculoskeletal: No other, No neck pain, No shoulder pain, No arm pain, No back pain, No hand pain, No leg pain, No foot pain Skin: Rash; No Lesions, No Jaundice, No Bruising, No Other Objective Vitals Vital Signs Date Time Temp Pulse Resp B/P (MAP) Pulse Ox O2 Delivery O2 Flow Rate FiO2 04/22/24 13:00 98.6 91 16 132/89 (103) 96 98.6 04/22/24 12:31 Room Air* 0 21 Intake/Output Intake and Output 04/22/24 07:00 Intake Total 950 ml Balance 950 ml Intake Oral 950 ml # Voids 5 General Appearance: Alert, Oriented X3, Cooperative, No acute distress HEENT: Atraumatic, PERRLA Cardiovascular: Normal S1, Normal S2 Genitourinary: No Apparent Abnormalities Musculoskeletal: Normal sensory function, Normal motor function Neuro: Normal gait, Normal speech Skin: Intact, Other (Systemic hives) Psych/Mental Status: Mental status NL, Mood NL Medications Current Medications Medications Dose Ordered Sig/Brodie Route Start Time Stop Time Status Last Admin Dose Admin Albuterol 2.5 mg Q6HWA NEB 04/21/24 12:00 04/22/24 12:31 2.5 MG Albuterol 2.5 mg Q2HPRN PRN NEB 04/21/24 07:15 Ipratropium [place] 0.5 mg Q6HWA NEB 04/21/24 12:00 04/22/24 12:31 0.5 MG Ipratropium [place] 0.5 mg Q2HPRN PRN NEB 04/21/24 07:15 Diagnostic Test (Pha) 1 strip ACHS 04/21/24 11:30 04/22/24 11:44 1 STRIP Insulin Human Regular ACHS SC 04/21/24 11:30 04/22/24 11:53 2 UNITS Dextrose 50 ml UD PRN IV 04/21/24 07:15 Ondansetron HCl 4 mg Q4HP PRN IV 04/21/24 07:15 Acetaminophen 650 mg Q6HP PRN PO 04/21/24 07:15 04/22/24 12:04 650 MG Methylprednisolone Sodium Succinate 80 mg Q8HR IV 04/21/24 22:00 04/22/24 15:32 80 MG Famotidine 20 mg Q12HR IV 04/21/24 22:00 04/22/24 09:32 20 MG Diphenhydramine HCl 25 mg Q6H PRN IV 04/21/24 15:00 04/22/24 12:05 25 MG Laboratory Results Laboratory Tests 04/22/24 07:02 Chemistry Test 04/22/24 07:02 Albumin 4.6 g/dL (3.2-4.8) Calcium Level 9.9 mg/dL (8.7-10.4) Total Protein 6.9 g/dL (5.7-8.2) LFT Test 04/22/24 07:02 Alanine Aminotransferase (ALT) 44 U/L (7-40) H Alkaline Phosphatase 97 U/L (46-116) Aspartate Amino Transferase (AST) 15 U/L (13-40) Total Bilirubin 0.5 mg/dL (0.2-1.0) Urinalysis Test 04/21/24 03:30 Urine Color Colorless (Yellow) Urine Clarity Clear (Clear) Urine pH 6.0 (5.0-9.0) Urine Specific [place] 1.004 (1.001-1.035) Urine Protein Negative (Negative) Urine Ketones Negative (Negative) Urine Blood Negative /uL (Negative) Urine Nitrite Negative (Negative) Urine Bilirubin Negative (Negative) Urine Urobilinogen Normal mg/dL (Negative) Urine Leukocyte Esterase Negative /uL (Negative) Urine RBC None seen /hpf (0 - 4) Urine Microscopic WBC < 1 /HPF (0-5) Urine Squamous Epithelial Cells Few /hpf (<5) Urine Bacteria Few /hpf (None Seen) H Urine Glucose 2+ mg/dL (Normal) H Labs and/or images reviewed: Labs reviewed by me, Image(s) reviewed by me Assessment/Plan Assessment/Plan Impression: -anaphylactic reaction -obesity -primary hypertension -dyslipidemia -sirs response without organ dysfunction Plan: Events: Patient having rebound of allergic reactions with sore throat, generalized hives. -increase Solu-Medrol to 80 mg IV q.6 hours -H1/H2 soni with Pepcid and Benadryl -continue antihypertensives -topical steroids for itching -frequent airway monitoring. -p.r.n. sleep aid Total time spent with patient discussing and formulating plan of care: 35 minutes. This medical document was created using an electronic medical record system with [email or web address] dictation system. Although this document has been carefully reviewed, there may still be some phonetic and typographical errors. These areas are purely typographical due to imperfections of the software programs, and do not reflect any compromise in the patient's medical care. Plan discussed with: Patient, Other (RN) My Orders Orders - FIDENCIO GATES NP Procedure Category Date Status Time Initiate Vte ISABELLA 04/22/24 In Process Prophylaxis 11:38 Date of Service: Apr 22, 2024 Billing Provider: FIDENCIO GATES NP Common Visit Codes: [id number] INP/OBS CARE(HIGH) FIDENCIO GATES NP Apr 22, 2024 15:40
[2024-04-22] MEDS ORDERED: TEMAZEPAM 15 MG CAP PO PRN (15:45)
[2024-04-22] MEDS: diphenhdrAMINE HCL 25 MG CAP PO PRN (18:45)
[2024-04-22] MEDS: methylPREDNISolone SOD SUCC 125 MG/2 ML VL IV SCH (18:45)
[2024-04-22] MEDS: HYDROCORTISONE 2.5% TOPICAL CREAM 30GM TUBE TOP SCH (21:52)
[2024-04-23] VITALS (15 sets, daily range): BP systolic 118–146; BP diastolic 70–82; PULSE 68–92; RESP 16–18; TEMP 97.7–98.4; O2SAT 95–100
--- NOTE | 2024-04-23 10:19 | DVHPN2 ---
Subjective Patient was hives have improved. Continues to have itchy throat. Reviewed: Care Plan, H&P, Labs, Medications Changes from previous H/P or p: Changes Eyes: No Pain, No Vision change, No Conjunctivae inflammation, No Eyelid inflammation, No Other, No Redness ENT: No Ear pain, No Ear discharge, No Nose pain, No Nose discharge, No Nose congestion, No Mouth pain, No Mouth swelling, No Throat pain, No Throat swelling; Other (Itchy throat) Cardiovascular: No Chest Pain, No Palpitations, No Orthopnea, No Paroxysmal Noc. Dyspnea, No Edema, No Lt Headedness, No Other Respiratory: No Cough, No Dry, No Shortness of breath, No SOB with excertion, No Wheezing, No Hemoptysis, No Pleuritic Pain, No Sputum, No Other Gastrointestinal: No Nausea, No Vomiting, No Abdominal Pain, No Diarrhea, No Constipation, No Melena, No Hematochezia, No Other Genitourinary: No Dysuria, No Frequency, No Incontinence, No Hematuria, No Retention, No Other Musculoskeletal: No other, No neck pain, No shoulder pain, No arm pain, No back pain, No hand pain, No leg pain, No foot pain Skin: Rash; No Lesions, No Jaundice, No Bruising, No Other Objective Vitals Vital Signs Date Time Temp Pulse Resp B/P (MAP) Pulse Ox O2 Delivery O2 Flow Rate FiO2 04/23/24 09:07 82 16 99 04/23/24 09:06 Room Air* 0 21 04/23/24 05:00 97.7 123/75 (91) 97.7 Intake/Output Intake and Output 04/23/24 07:00 Intake Total 1020 ml Balance 1020 ml Intake Oral 1020 ml # Voids 5 General Appearance: Alert, Oriented X3, Cooperative, No acute distress HEENT: Atraumatic, PERRLA Cardiovascular: Normal S1, Normal S2 Genitourinary: No Apparent Abnormalities Musculoskeletal: Normal sensory function, Normal motor function Neuro: Normal gait, Normal speech Skin: Dry, Intact, Other (Systemic hives) Psych/Mental Status: Mental status NL, Mood NL Medications Current Medications Medications Dose Ordered Sig/Brodie Route Start Time Stop Time Status Last Admin Dose Admin Albuterol 2.5 mg Q6HWA NEB 04/21/24 12:00 04/23/24 09:05 2.5 MG Albuterol 2.5 mg Q2HPRN PRN NEB 04/21/24 07:15 Ipratropium [place] 0.5 mg Q6HWA NEB 04/21/24 12:00 04/23/24 09:05 0.5 MG Ipratropium [place] 0.5 mg Q2HPRN PRN NEB 04/21/24 07:15 Ondansetron HCl 4 mg Q4HP PRN IV 04/21/24 07:15 Acetaminophen 650 mg Q6HP PRN PO 04/21/24 07:15 04/23/24 01:52 650 MG Famotidine 20 mg Q12HR IV 04/21/24 22:00 04/23/24 10:11 20 MG Methylprednisolone Sodium Succinate 80 mg Q6HR IV 04/22/24 18:00 04/23/24 06:23 80 MG Diphenhydramine HCl 25 mg Q6H PRN PO 04/22/24 18:00 04/23/24 06:23 25 MG Temazepam 15 mg HSPRN PRN PO 04/22/24 15:45 Hydrocortisone 1 applic BID TOP 04/22/24 22:00 04/23/24 10:11 1 APPLIC Laboratory Results Laboratory Tests 04/22/24 07:02 Urinalysis Test 04/21/24 03:30 Urine Color Colorless (Yellow) Urine Clarity Clear (Clear) Urine pH 6.0 (5.0-9.0) Urine Specific [place] 1.004 (1.001-1.035) Urine Protein Negative (Negative) Urine Ketones Negative (Negative) Urine Blood Negative /uL (Negative) Urine Nitrite Negative (Negative) Urine Bilirubin Negative (Negative) Urine Urobilinogen Normal mg/dL (Negative) Urine Leukocyte Esterase Negative /uL (Negative) Urine RBC None seen /hpf (0 - 4) Urine Microscopic WBC < 1 /HPF (0-5) Urine Squamous Epithelial Cells Few /hpf (<5) Urine Bacteria Few /hpf (None Seen) H Urine Glucose 2+ mg/dL (Normal) H Labs and/or images reviewed: Labs reviewed by me, Image(s) reviewed by me Assessment/Plan Assessment/Plan Impression: -anaphylactic reaction -obesity -primary hypertension -dyslipidemia -sirs response without organ dysfunction Plan: Events: Improvement with hives. Now reports having headache. Mild hypertension, probably secondary to steroids. We will reassess this afternoon for possible discharge. -increase Solu-Medrol to 80 mg IV q.6 hours -H1/H2 soni with Pepcid and Benadryl -continue antihypertensives -topical steroids for itching -frequent airway monitoring. -p.r.n. sleep aid Total time spent with patient discussing and formulating plan of care: 35 minutes. This medical document was created using an electronic medical record system with [employer] dictation system. Although this document has been carefully reviewed, there may still be some phonetic and typographical errors. These areas are purely typographical due to imperfections of the software programs, and do not reflect any compromise in the patient's medical care. Plan discussed with: Patient, Other (RN) My Orders Orders - FIDENCIO GATES NP Procedure Category Date Status Time Initiate Vte ISABELLA 04/22/24 In Process Prophylaxis 11:38 Methylprednisolone PHA 04/22/24 In Process Sod Succ (Solu Medrol 18:00 Diphenhdramine PHA 04/22/24 In Process Capsule (Benadryl 18:00 Temazepam (Restoril) PHA 04/22/24 In Process 15:45 Hydrocortone 2.5% PHA 04/22/24 In Process Topical Crm (Hydrocort 22:00 Date of Service: Apr 23, 2024 Billing Provider: FIDENCIO GATES NP Common Visit Codes: [id number] INP/OBS CARE(HIGH) FIDENCIO GATES NP Apr 23, 2024 10:19
[2024-04-23] MEDS ORDERED: PRED20TA2 PO (16:21)
[2024-04-23] MEDS ORDERED: FAMO20TA10 PO (16:21)
--- NOTE | 2024-04-23 16:33 | DVHDS2 ---
Discharge Summary Date of Admission Apr 21, 2024 at 07:02 Date of Discharge: Apr 23, 2024 Admitting Diagnosis Anaphylactic reaction Labs/Diagnostic Data: Laboratory Results Test 04/22/24 11:34 04/22/24 07:02 04/21/24 08:10 04/21/24 03:30 POC Glucose 139 mg/dl (70-106) White Blood Count 22.1 10^3/uL (4.4-10.8) Red Blood Count 4.46 10^6/uL (4.0-5.20) Hemoglobin 14.0 g/dL (12.2-16.2) Hematocrit 40.3 % (36.0-46.0) Mean Corpuscular Volume 90.4 fL (80.0-100.0) Mean Corpuscular Hemoglobin 31.5 pg (28.0-32.0) Mean Corpuscular Hemoglobin Concent 34.8 g/dL (32.0-36.0) Red Cell Distribution Width 13.2 % (11.8-14.3) Platelet Count 313 10^3/uL (140-450) Mean Platelet Volume 9.3 fL (6.9-10.8) Neutrophils (%) (Auto) 92.4 % (37.0-80.0) Lymphocytes (%) (Auto) 5.3 % (10.0-50.0) Monocytes (%) (Auto) 2.3 % (0.0-12.0) Eosinophils (%) (Auto) 0.0 % (0.0-7.0) Basophils (%) (Auto) 0.0 % (0.0-2.0) Neutrophils # (Auto) 20.4 10 ^3/uL (1.6-8.6) Lymphocytes # (Auto) 1.2 10 ^3/uL (0.4-5.4) Monocytes # (Auto) 0.5 10 ^3/uL (0-1.3) Eosinophils # (Auto) 0 10 ^3/uL (0-0.8) Basophils # (Auto) 0 10 ^3/uL (0-0.2) Nucleated Red Blood Cells 0.1 % Sodium Level 140 mmol/L (136-145) Potassium Level 4.1 mmol/L (3.5-5.1) Chloride Level 105 mmol/L (98-107) Carbon Dioxide Level 26 mmol/L (20-31) Anion Gap 9 (5-15) Blood Urea Nitrogen 10 mg/dL (9-23) Creatinine 0.74 mg/dL (0.550-1.02) Glomerular Filtration Rate Calc 102 mL/min (>90) BUN/Creatinine Ratio 13.5 (10.0-20.0) Serum Glucose 143 mg/dL (74-106) Calcium Level 9.9 mg/dL (8.7-10.4) Total Bilirubin 0.5 mg/dL (0.2-1.0) Aspartate Amino Transferase (AST) 15 U/L (13-40) Alanine Aminotransferase (ALT) 44 U/L (7-40) Alkaline Phosphatase 97 U/L (46-116) Total Protein 6.9 g/dL (5.7-8.2) Albumin 4.6 g/dL (3.2-4.8) Influenza Type A Antigen Negative (Negative) Influenza Type B Antigen Negative (Negative) SARS-CoV-2 Antigen (Rapid) Negative (NEGATIVE) Urine Color Colorless (Yellow) Urine Clarity Clear (Clear) Urine pH 6.0 (5.0-9.0) Urine Specific [place] 1.004 (1.001-1.035) Urine Protein Negative (Negative) Urine Ketones Negative (Negative) Urine Blood Negative /uL (Negative) Urine Nitrite Negative (Negative) Urine Bilirubin Negative (Negative) Urine Urobilinogen Normal mg/dL (Negative) Urine Leukocyte Esterase Negative /uL (Negative) Urine RBC None seen /hpf (0 - 4) Urine Microscopic WBC < 1 /HPF (0-5) Urine Squamous Epithelial Cells Few /hpf (<5) Urine Bacteria Few /hpf (None Seen) Urine Glucose 2+ mg/dL (Normal) Test 04/21/24 02:14 Hemoglobin A1c 5.4 % A1C (<5.7) Other Laboratory Tests 04/22/24 07:02 Brief Hx & Hospital Course: History of Present Illness Maria Guadalupe Pierce is a 43-year-old female with past medical history of hypertension, hyperlipidemia, GERD, migraines, appendectomy, and hysterectomy presents to the ED for itchy throat and rash after eating a homemade chicken bowl x2 days. Patient reports this is the 2nd episode this week and she currently sees an mobile phlebotomist, received a skin and blood test to determine what her triggering factors are which she states are environmental. Patient reports that she was getting immunotherapy but stopped last year in August and has not resumed. Patient denies any recent sick contacts, recent illnesses, chest pain, shortness of breath, nausea, vomiting, diarrhea, fever, chills, lightheadedness, and dizziness. Course of hospitalization: Patient was placed on initial treatment Solu-Medrol 40 mg IV b.i.d. with Benadryl as needed. Reassessment of the patient reveals that she continued to have itchiness in her throat, slight wheezing, as well as systemic hives, more noticeable on her lower extremities and her trunk. Patient had her steroids titrated up to 80 mg q.8 hours with both Pepcid and Benadryl scheduled every 6 hours. Patient was hives have improved. The patient did have issues with return of her hives on her upper and lower extremities, which did resolved. Patient states that her symptoms have improved dramatically and she was okay to go home at this time. Given that she was awaiting to be seen by an mobile phlebotomist and has had multiple issues with return of her hives, patient will be placed on a long tapering dose of prednisone as well as Pepcid. Physical examination General: Alert and Oriented x3. No acute distress. Well-nourished. Eyes: EOMI. Anicteric. HENT: Moist mucous membranes. Lungs: Clear to auscultation bilaterally. No accessory muscle use. Cardiovascular: Regular rate and rhythm. No murmur. No JVD. Abdomen: Soft, non-tender and non-distended. No palpable masses. Extremities: No edema. Non-tender. Skin: No rashes or lesions. Warm. Neurologic: No focal neurological deficits. CN II-XII grossly intact, but not individually tested. Psychiatric: Cooperative. Appropriate mood and affect. Total time spent with patient discussing and formulating plan of care: 35 minutes. This medical document was created using an electronic medical record system with [employer] dictation system. Although this document has been carefully reviewed, there may still be some phonetic and typographical errors. These areas are purely typographical due to imperfections of the software programs, and do not reflect any compromise in the patient's medical care. Condition at Discharge: Fair Final Diagnosis/Problems List Anaphylactic reaction Secondary Diagnosis: -anaphylactic reaction -obesity -primary hypertension -dyslipidemia -sirs response without organ dysfunction Discharge Disposition: Home Discharge Instruct/Medications Diet: Cardiac 2g Na,low cholest Activity: No Restrictions, As Tolerated Follow Up/Referral: Follow up with PCP within one week Medications: Prednisone tapering dose as ordered Pepcid 20 mg p.o. b.i.d. 36 Discharge Statement: "Patient was advised to return to the ER or call 911 if any headaches, dizziness, shortness of breath, chest pain, abdominal pain, bleeding, fevers, or worsening of medical condition. Patient was counseled about treatment plan, medications, possible side effects, patientverbalized understanding. All questions were answered to the best of my ability. This discharge took greater then 30 minutes in planning, reviewing documentation, counseling the patient, and discussing with other team members." ASSESSMENT ASSESSMENT Assessment Anaphylactic reaction Date of Service: Apr 23, 2024 Billing Provider: FIDENCIO GATES NP Common Visit Codes: [id number]-RWH/OBS DISCH DAY >30min FIDENCIO GATES NP Apr 23, 2024 16:33
[2024-04-23] MEDS: diphenhdrAMINE HCL 25 MG CAP PO SCH (18:38)
== END 2024-04-23 19:07 | disposition home or self-care (01) | DRG 916 ==
LOC: ER 19:21 → OVERFLOW 04-21 07:02 → WEST WING 04-21 21:00
PROVIDERS: ADMIT Nurse Practitioner Acute Care; ATTEND Nurse Practitioner Acute Care
DX: T78.2XXA Anaphylactic shock, unspecified, initial encounter (principal); R65.10 Systemic inflammatory response syndrome (SIRS) of non-infectious origin without acute organ dysfunction; E66.9 Obesity, unspecified; Z20.822 Contact with and (suspected) exposure to COVID-19; E78.5 Hyperlipidemia, unspecified; I10 Essential (primary) hypertension; K21.9 Gastro-esophageal reflux disease without esophagitis; G43.909 Migraine, unspecified, not intractable, without status migrainosus; E11.9 Type 2 diabetes mellitus without complications; E87.6 Hypokalemia; Z68.32 Body mass index [BMI] 32.0-32.9, adult; Z79.4 Long term (current) use of insulin; Z90.710 Acquired absence of both cervix and uterus; Z83.3 Family history of diabetes mellitus; Y84.8 Other medical procedures as the cause of abnormal reaction of the patient, or of later complication, without mention of misadventure at the time of the procedure; Y92.89 Other specified places as the place of occurrence of the external cause
CPT/HCPCS: 36415; 71045; 80053; 81001; 82962; 83036; 85025; 87426; 87804; 93005; 94640; 96361; 96365; 96367; 96372; 96375; 96376; G0378; J0171; J1815; J3490

== ENCOUNTER 2025-02-17 14:44 | Emergency (ER) | payer BC, OTHER ==
[~2025-02-17] VITALS: Ht 160 cm; Wt 80.0 kg
[~2025-02-17 14:44] MED LIST changes: -METH4PAK PO; +PRED20TA2 PO
--- NOTE | 2025-02-17 15:05 | ED.PDOC ---
History of Present Illness HPI Comments 44F presents to the ER w/ prior MHx of HTN, Prolong QT:SHx of Appendectomy, Hysterectomy and the c/c of CP. Pt reports on having left sided pressure like CP which radiates down the left arm leaving a burning sensation which comes/goes since last night. Pt notes on also having had Lightheadedness and an elevated BP of 179/119 this morning, prompting the pt to go to the ER. Denies any symptoms at this time. Patient denies any CP, SOB, dizziness, numbness, weakness, tingling, fever, chills, or recent fall. Chief Complaint: Chest Pain Time Seen by MD: 15:00 Primary Care Provider: DR CURRY Reviewed Notes: Nurses Notes, Medications, Allergies Allergies: Coded Allergies: [place] (Verified Allergy, Unknown, 02/17/25) Modified Tree Tyrosine Adsorbate (Verified Allergy, Unknown, 04/22/24) Tramadol (Verified Allergy, Unknown, 02/17/25) Home Meds Active Scripts Famotidine (PEPCID TABLET) 20 Mg Tb, 1 TAB PO BID for 10 Days, #20 TAB 0 Refills Prov:FIDENCIO GATES [employer] SAL[employer]ANT 04/23/24 Prednisone (Prednisone) 20 Mg Tab, 20 MG PO DAILY for 7 Days, #20 MG 40 mg p.o. twice a day x2 days then, 20 mg p.o. twice a day x2 days then, 20 mg p.o. daily times three days Prov:FIDENCIO GATES [employer] SALES [employer]SULTANT 04/23/24 Information Source: Patient Mode of Arrival: Ambulatory Severity: Moderate Timing: Hours Duration: Since onset, Hours Prehospital treatment: None Past Medical History PAST MEDICAL HISTORY: HTN Past Medical History (Other): Prolong QT Surgical History: Appendectomy, Hysterectomy BROADCAST JOURNALIST History: No Pertinent BROADCAST JOURNALIST History Family History Family History: Reviewed,noncontributory to illness, Unknown Social History Smoker: Non-Smoker Alcohol: Denies ETOH Use Drugs: Denies Drug Use Lives In: Home Constitutional: denies: chills, diaphoresis, fatigue, fever, malaise, sweats, weakness, others EENTM: denies: blurred vision, double vision, ear bleeding, ear discharge, ear drainage, ear pain, ear ringing, eye pain, eye redness, hearing loss, mouth pain, mouth swelling, nasal discharge, nose bleeding, nose congestion, nose pain, photophobia, tearing, throat pain, throat swelling, voice changes, others Respiratory: denies: cough, hemoptysis, orthopnea, SOB at rest, shortness of breath, SOB with excertion, stridor, wheezing, others Cardiovascular: reports: chest pain, left arm pain, lightheadedness; denies: dizzy spells, diaphoresis, Dyspnea on exertion, edema, irregular heart beat, palpitations, PND, syncope, others Gastrointestinal: denies: abdomen distended, abdominal pain, blood streaked bowels, constipated, diarrhea, dysphagia, difficulty swallowing, hematemesis, melena, nausea, poor appetite, poor fluid intake, rectal bleeding, rectal pain, vomiting, others Genitourinary: denies: abnormal vagina bleeding, burning, dyspareunia, dysuria, flank pain, frequency, hematuria, incontinence, pain, , vagina discharge, urgency, others Neurological: denies: dizziness, fainting, headache, left sided numbness, left sided weakness, numbness, paresthesia, pre-existing deficit, right sided numbness, right sided weakness, seizure, speech problems, tingling, tremors, weakness, others Musculoskeletal: denies: back pain, gout, joint pain, joint swelling, muscle pain, muscle stiffness, neck pain, others Integumetry: denies: bruises, change in color, change in hair/nails, dryness, laceration, lesions, lumps, rash, wounds, others Allergic/Immunocompromised: denies: Difficulty Healing, Frequent Infections, Hives, Itching, others Hematologic/Lymphatic: denies: anemia, blood clots, easy bleeding, easy bruising, swollen glands, others Endocrine: denies: excessive hunger, excessive sweating, excessive thirst, excessive urination, flushing, intolerance to cold, intolerance to heat, unexplained weight gain, unexplained weight loss, others Psychiatric: denies: anxiety, bipolar disorder, depression, hopeless, panic disorder, schizophrenia, sleepless, suicidal, others All Other Systems: Reviewed and Negative Physical Exam Exam Comments CP reproducible to the left shoulder General Appearance: No Apparent Distress, Normal HEENT: Normal ENT Inspection, Pharynx Normal, TMs Normal Neck: Full Range of Motion, Non-Tender, Normal, Normal Inspection Respiratory: Chest Non-Tender, Lungs Clear, No Accessory Muscle Use, No Respiratory Distress, Normal Breath Sounds Cardiovascular: No Edema, No JVD, No Murmur, No Gallop, Normal Peripheral Pulses, Regular Rate/Rhythm Breast Exam: Deferred Gastrointestinal: No Organomegaly, Non Tender, No Pulsatile Mass, Normal Bowel Sounds, Soft Genitalia: Deferred Pelvic: Deferred Rectal: Deferred Extremities: No calf tenderness, Normal capillary refill, Normal inspection, Normal range of motion, Non-tender, No pedal edema Musculoskeletal : Apperance: Normal Neurologic: Alert, service or work dispatcher chief II-XII nml as Tested, No Motor Deficits, Normal Affect, Normal Mood, No Sensory Deficits Cerebellar Function: Normal Reflexes: Normal Skin: Dry, Normal Color, Warm Lymphatic: No Adenopathy Was a procedure done? Was a procedure done?: No EKG EKG : Pulse Rate (adult): 88 [place]: Normal Cardiac Rhythm: NSR Hypertrophy: None ST: Normal Differential Dx Considerations may include: Mi, anxiety, chest wall pain, costochondritis X-Ray, Labs, Meds, VS Vital Signs Date Time Temp Pulse Resp B/P (MAP) Pulse Ox O2 Delivery O2 Flow Rate FiO2 02/17/25 15:05 88 02/17/25 14:53 88 02/17/25 14:45 97.0 89 18 179/103 99 97.0 Lab Test 02/17/25 15:17 Range/Units White Blood Count 8.5 4.4-10.8 10^3/uL Red Blood Count 4.81 4.0-5.20 10^6/uL Hemoglobin 14.7 12.2-16.2 g/dL Hematocrit 42.7 36.0-46.0 % Mean Corpuscular Volume 88.8 80.0-100.0 fL Mean Corpuscular Hemoglobin 30.6 28.0-32.0 pg Mean Corpuscular Hemoglobin Concent 34.5 32.0-36.0 g/dL Red Cell Distribution Width 12.7 11.8-14.3 % Platelet Count 251 140-450 10^3/uL Mean Platelet Volume 9.3 6.9-10.8 fL Neutrophils (%) (Auto) 64.4 37.0-80.0 % Lymphocytes (%) (Auto) 27.4 10.0-50.0 % Monocytes (%) (Auto) 6.1 0.0-12.0 % Eosinophils (%) (Auto) 1.5 0.0-7.0 % Basophils (%) (Auto) 0.6 0.0-2.0 % Neutrophils # (Auto) 5.5 1.6-8.6 10 ^3/uL Lymphocytes # (Auto) 2.3 0.4-5.4 10 ^3/uL Monocytes # (Auto) 0.5 0-1.3 10 ^3/uL Eosinophils # (Auto) 0.1 0-0.8 10 ^3/uL Basophils # (Auto) 0 0-0.2 10 ^3/uL Nucleated Red Blood Cells 0.0 % Sodium Level 142 136-145 mmol/L Potassium Level 4.4 3.5-5.1 mmol/L Chloride Level 106 98-107 mmol/L Carbon Dioxide Level 28 20-31 mmol/L Anion Gap 8 5-15 Blood Urea Nitrogen 12 9-23 mg/dL Creatinine 0.84 0.550-1.02 mg/dL Glomerular Filtration Rate Calc 87 >90 mL/min BUN/Creatinine Ratio 14.3 10.0-20.0 Serum Glucose 98 74-106 mg/dL Calcium Level 10.1 8.7-10.4 mg/dL Troponin I High Sensitivity 14 </=34 ng/L X-Ray, Labs, Meds, VS Comment Imaging was reviewed by this provider, there is no obvious pathological or acute disease process. Pending radiology review Labs were reviewed by this provider, no abnormalities Vital signs reviewed by this provider, clinically stable Time of 1ST Reevaluation: 15:30 Reevaluation 1ST: Unchanged Patient Education/Counseling: Diagnosis, Treatment, Prognosis, Need For Follow Up (Follow up with PCP next available appointment. Return to the emergency department if symptoms worsen.) Family Education/Counseling: No Family Present SEPSIS Sepsis Screen Date sepsis recognized/suspect: Feb 17, 2025 Time Sepsis recognized/suspect: 1447 Recent Procedure: No On Antibiotic Therapy: No Respiratory Rate >20: No Heart Rate >90: No Temp<36 C (96.8 F) or >38.3 C: No SBP <90 or MAP <65 mmHG: No New Acute Mental Status Change: No Is the patient on CPAP, BIPAP,: No Physician Orders Electrocardigram (02/17/25 14:58) Urinalysis (02/17/25 15:06) Chest Xray 1 View (02/17/25 15:06) Troponin-I Hs (02/17/25 16:06) Troponin-I Hs (02/17/25 18:06) Vital Signs Date Time Temp Pulse Resp B/P (MAP) Pulse Ox O2 Delivery O2 Flow Rate FiO2 02/17/25 15:05 88 02/17/25 14:53 88 02/17/25 14:45 97.0 89 18 179/103 99 97.0 Laboratory Tests Test 02/17/25 15:17 White Blood Count 8.5 10^3/uL (4.4-10.8) Departure 1 Departure Time of Disposition: 15:59 Impression: Primary Impression: Musculoskeletal chest pain Disposition: 01 HOME / SELF CARE / HOMELESS Condition: Stable Discharged With: Self Critical Care Note Critical Care Time?: No Stability Stability form required: No Heart Score Heart Score: Heart Score Response (Comments) Value History Slightly Suspicious 0 EKG Normal 0 Age <45 0 Risk Factors No known risk factors 0 Troponin Normal limit 0 Total 0 I personally scribed for ALAN RAMOS ([email or web address]) on 02/17/25 at 15:05. Electronically submitted by Keith Mora ([email or web address]). ALAN RAMOS Feb 17, 2025 15:05
[2025-02-17 15:33] LABS: Hematocrit 42.7 % (36.0-46.0); Hemoglobin 14.7 g/dL (12.2-16.2); Mean Corpuscular Hemoglobin 30.6 pg (28.0-32.0); Mean Corpuscular Volume 88.8 fL (80.0-100.0); Nucleated Red Blood Cells % 0.0 %
[2025-02-17 15:40] LABS: Chloride 106 mmol/L (98-107); Potassium 4.4 mmol/L (3.5-5.1); Sodium 142 mmol/L (136-145)
[2025-02-17 15:42] LABS: Anion Gap 8 (5-15); Calcium 10.1 mg/dL (8.7-10.4); Carbon Dioxide 28 mmol/L (20-31)
--- NOTE | 2025-02-17 15:43 | DVH ---
CLINICAL HISTORY: cp TECHNIQUE: Single view of the chest was obtained. COMPARISON: XY CHEST XRAY 1 VIEW on DOS: 04/21/24 FINDINGS: The heart size and pulmonary vasculature are normal. The lungs are clear. IMPRESSION: NO ACUTE CARDIOPULMONARY PROCESS.
[2025-02-17 15:47] LABS: BUN/Creatinine Ratio 14.3 (10.0-20.0); Blood Urea Nitrogen 12 mg/dL (9-23); Glucose 98 mg/dL (74-106)
[2025-02-17 16:51] LABS: Urine Protein, UAD Negative (Negative)
[2025-02-17 17:14] VITALS: BP 146/95; PULSE 70; RESP 17; TEMP 98.7; O2SAT 99
--- NOTE | 2025-02-22 07:10 | ECG ---
[facility] Test Date: 2025-02-17 Test Time: 14:53:47 Pat Name: VINAY REYNOLDS Department: [facility] ED Patient ID: [facility]-[id number] Room: Gender: F Medical Case Manager: ALYX : 1980 Requested By: ALAN VIRAMONTES* Order Number: [id number] Reading MD: Kendall Salas Measurements Intervals [place] Rate: 88 P: 67 NE: 139 QRS: 75 QRSD: 83 T: 59 QT: 394 QTc: 477 Interpretive Statements Sinus rhythm Electronically Signed On 02-23-2025 14:44:13 PST by Kendall Salas Please click the below link to view image of tracing.
== END 2025-02-17 17:16 | disposition home or self-care (01) ==
LOC: ER 14:44
DX: R07.89 Other chest pain (principal); I10 Essential (primary) hypertension; Z79.899 Other long term (current) drug therapy; Z90.710 Acquired absence of both cervix and uterus; Z90.49 Acquired absence of other specified parts of digestive tract; Z88.5 Allergy status to narcotic agent; Z79.52 Long term (current) use of systemic steroids; Z91.018 Allergy to other foods
CPT/HCPCS: 36415; 71045; 80048; 81001; 84484; 85025; 93005